=== PATIENT | female | born 1930 | race Caucasian/White ===

== ENCOUNTER 2020-09-14 21:54 | Emergency (ER) | payer OTHER | END 2020-09-15 00:08 | disposition home or self-care (01) | LOC: ER1 21:54 | DX: S93.602A Unspecified sprain of left foot, initial encounter (principal); S60.222A Contusion of left hand, initial encounter; I48.91 Unspecified atrial fibrillation; E11.9 Type 2 diabetes mellitus without complications; W19.XXXA Unspecified fall, initial encounter | CPT/HCPCS: 73130; 73630; 99283 ==